=== PATIENT | male | born 1945 | race Caucasian/White ===

== ENCOUNTER → 2020-08-03 | Outpatient (CLI) | payer OTHER ==
[~2020-08-03] MED LIST: ASA81 MG PO; AVAPRO300 MG PO; SIMVASTATIN20 MG PO; SYNTHROID50 MCG PO
== END | disposition home or self-care (01) ==
LOC: OFIC 805 10:30
PROVIDERS: ATTEND Otolaryngology
DX: L30.8 Other specified dermatitis (principal); H61.23 Impacted cerumen, bilateral

== ENCOUNTER 2020-09-03 09:12 | Outpatient (CLI) | payer OTHER | END 2020-09-03 11:00 | disposition home or self-care (01) | LOC: OFIC 805 09:12 | PROVIDERS: ATTEND Otolaryngology | DX: L30.8 Other specified dermatitis (principal); H61.23 Impacted cerumen, bilateral; M75.41 Impingement syndrome of right shoulder ==